=== PATIENT | female | born 1955 | race Caucasian/White ===

== ENCOUNTER 2019-10-24 18:19 | Emergency (ER) | payer MEDICARE, MEDICAID ==
[~2019-10-24] VITALS: Ht 149.9 cm; Wt 54.4 kg
[2019-10-24] MEDS ORDERED: TOPROL XL25 MG PO (18:24)
[2019-10-24] MEDS ORDERED: LISINOPRIL2.5 MG PO (18:24)
[2019-10-24] MEDS ORDERED: NEURONTIN 300M300 M2 PO (18:25)
[2019-10-24] MEDS ORDERED: ASA81BEC PO (18:25)
[2019-10-24] MEDS ORDERED: LIPITOR10 MG PO (18:25)
[2019-10-24] MEDS ORDERED: PLAVIX 75 MG TA75 MG PO (18:25)
[2019-10-24] MEDS ORDERED: SEROQUEL 25 MG25 M1 PO (18:25)
[2019-10-24 18:52] LABS: ABSOLUTE BASOPHILS 0.1 thou/uL (0.0-0.2); ABSOLUTE EOSINOPHILS 0.2 thou/uL (0.0-0.7); ABSOLUTE LYMPHOCYTES 1.4 thou/uL (0.8-5.3); ABSOLUTE MONOCYTES 0.8 thou/uL (0.0-1.2); ABSOLUTE NEUTROPHILS 8.7 thou/uL (1.6-8.1); BASOPHILS 0.9 %; EOSINOPHILS 1.7 %; HEMATOCRIT 41.5 % (37.0-47.0); LYMPHOCYTES 12.2 %; MCH 30.5 pg (26.0-34.0); MCHC 33.8 g/dL (28.0-37.0); MCV 90.4 fL (80.0-100.0); MONOCYTES 7.1 %; MPV 9.3 fl. (7.2-11.1); NUCLEATED RBCS 0 /100WBC; PLATELET COUNT* 217 thou/uL (150-400); POLYS 78.1 %; RBC 4.59 mil/uL (4.20-5.00); WBC 11.2 thou/uL (4.0-11.0)
[2019-10-24 18:57] LABS: URINE BILIRUBIN NEGATIVE (Negative); URINE BLOOD 2+ (Negative); URINE CLARITY CLEAR; URINE COLOR YELLOW; URINE GLUCOSE-RANDOM NEGATIVE (Negative); URINE KETONES NEGATIVE (Negative); URINE LEUKOCYTES-REFLEX NEGATIVE (Negative); URINE NITRITE-REFLEX NEGATIVE (Negative); URINE PROTEIN NEGATIVE (Negative); URINE UROBILINOGEN 0.2 E.U./dl (0.2-1.0)
[2019-10-24 18:59] LABS: CALCIUM 8.6 mg/dL (8.5-10.1); CREATININE 0.8 mg/dL (0.6-1.3); POTASSIUM 3.1 mmol/L (3.5-5.1)
[2019-10-24 19:04] LABS: ALBUMIN 3.4 g/dL (3.4-5.0); TOTAL BILIRUBIN 0.1 mg/dL (<0.1-1.0); TOTAL PROTEIN 6.4 g/dL (6.4-8.2)
[2019-10-24 19:05] LABS: AMP/METHAMP Negative (Negative); BARBITURATES Negative (Negative); BENZODIAZEPINES Negative (Negative); COCAINE Negative (Negative); METHADONE Negative (Negative); OPIATES Negative (Negative); PCP Negative (Negative); THC Negative (Negative)
[2019-10-24 19:09] LABS: SALICYLATE 3.6 mg/dL (2.8-20.0)
[2019-10-24 19:10] LABS: ACETAMINOPHEN < 2 ug/mL (10-30); ALCOHOL < 10 mg/dL (<10)
[2019-10-24 19:11] LABS: BACTERIA-REFLEX 1-9 Few /HPF (None Seen); CASTS None Seen /LPF (None Seen); CRYSTALS None Seen /LPF (None Seen); SQUAMOUS >10 Many /LPF (0-3); URINE RBC 0-2 Rare /HPF (0-2); URINE WBC-REFLEX 0-5 Rare /HPF (0-5)
[2019-10-24 22:35] VITALS: BP 126/57
--- NOTE | 2019-10-25 11:09 | EKG ---
[place] [address] ELECTROCARDIOGRAM REPORT Name: MG DAVEY Room: [facility]#: [id number] Admission: 10/24/19 Attend Phys: Discharge: 10/24/19 Date of : 59 Date of Service: 10/24/192119 Report #: [id number] THIS REPORT FOR: //name// [facility] ED Test Date: 2019-10-24 Test Time: 21:20:35 Pat Name: MG DAVEY Department: Room: Gender: Dye Jig Operator: : [id number] Requested By: Mary Santana Order Number: [id number] Abigail MD: Surya Schumacher Measurements Intervals [place] Rate: 69 P: -81 VA: 142 QRS: -74 QRSD: 129 T: 65 QT: 413 QTc: 443 Interpretive Statements Ectopic atrial rhythm RBBB and LAFB Left ventricular hypertrophy No previous ECG available for comparison Electronically Signed On 10-25-2019 11:08:33 LOAD TESTER by Surya Schumacher [email or web address] <ELECTRONICALLY SIGNED> By: Surya Schumacher MD, [facility] 10/25/19 1108 19 19 Surya Schumacher MD, [facility] /EPI
== END 2019-10-24 22:35 | disposition short-term general hospital (02) ==
LOC: M.ERS 18:19
PROVIDERS: Family Medicine
DX: F29 Unspecified psychosis not due to a substance or known physiological condition (principal); I10 Essential (primary) hypertension; E78.5 Hyperlipidemia, unspecified; M54.9 Dorsalgia, unspecified; G89.29 Other chronic pain